=== PATIENT | male | born 1980 | race Caucasian/White ===

== ENCOUNTER 2017-09-19 03:33 | Emergency (ER) | payer MEDICAID ==
[~2017-09-19] VITALS: Ht 175.3 cm; Wt 88.5 kg
[2017-09-19] MEDS ORDERED: NKM (03:45)
[2017-09-19 03:50] VITALS: BP 123/73
[2017-09-19] MEDS ORDERED: MUPIROCIN22 GM TOPIC (04:10)
[2017-09-19] MEDS ORDERED: DOXYCYCLINE MO100 MG ORAL (04:10)
--- NOTE | 2017-09-19 04:10 | Emergency Room Report ---
History of Present Illness General Chief Complaint: Male Urogenital Problems Source: Patient Present Illness HPI Is a 37-year-old male with no past medical history. He presents with penile pain. Onset for about a week. He said about a month ago his girlfriend and shave in the pubic area and has bumps around that area. There were having intercourse he said there was a small cut to the head of the penis. It never healed completely. About a week ago started draining now has swelling to the shaft. No fever chills but no nausea no vomiting. [place] and palpation made it worse. Rest made it better. No penile discharge. No dysuria. Allergies: Coded Allergies: No Known Allergies (Unverified , 09/19/17) Patient History Past Medical History: see triage record, old chart reviewed Past Surgical History: none Pertinent Family History: none Social History: Denies: smoking Immunizations: other Reviewed Nursing Documentation: PMH: Agreed; PSxH: Agreed Nursing Documentation-PM Past Medical History: No Stated History Review of Systems Eye: Denies: eye pain, blurred vision ENT: Denies: ear pain, nose congestion, throat swelling Respiratory: Denies: cough, shortness of breath Cardiovascular: Denies: chest pain, palpitations Gastrointestinal: Denies: abdominal pain, diarrhea, nausea, vomiting Musculoskeletal: Denies: back pain, joint pain Skin: Denies: rash Neurological: Denies: headache, numbness Endocrine: Denies: increased thirst, increased urine Hematologic/Lymphatic: Denies: easy bruising All Other Systems: negative except mentioned in HPI Physical Exam Vital Signs Date Time Temp Pulse Resp B/P (MAP) Pulse Ox O2 Delivery O2 Flow Rate FiO2 09/19/17 03:42 97.7 81 16 123/73 96 Room Air 97.7 vitals normal Sp02 EP Interpretation: reviewed, normal General Appearance: well appearing, no apparent distress, alert Head: normocephalic, atraumatic Eyes: bilateral eye PERRL, bilateral eye EOMI ENT: hearing grossly normal, normal pharynx Neck: full range of motion, supple, no meningismus Respiratory: chest non-tender, lungs clear, normal breath sounds Cardiovascular #1: regular rate, rhythm, no murmur Gastrointestinal: normal bowel sounds, non tender, no mass, no organomegaly, no bruit, non-distended Genitourinary: other - Patient is circumcised. No testicular tenderness. On the lateral aspect of the right side at the face with plan there is a 1 cm laceration with purulent drainage. He has some erythema to the skin of the shaft. No abscess palpated on the shaft. Musculoskeletal: back normal, gait/station normal, normal range of motion Psychiatric: mood/affect normal Skin: warm/dry Medical Decision Making Diagnostic Impression: Primary Impression: Abscess of penis ER Course Patient with a superficial abscess to the base of penile glan. No evidence of Lauren disease. No evidence of necrotizing fasciitis. Last Vital Signs Date Time Temp Pulse Resp B/P (MAP) Pulse Ox O2 Delivery O2 Flow Rate FiO2 09/19/17 03:50 97.7 81 16 123/73 96 Room Air 97.7 Status: improved Disposition: HOME, SELF-CARE Condition: Stable Scripts Doxycycline Monohydrate* (DOXYCYCLINE MONOHYDRATE*) 100 Mg Capsule 100 MG ORAL Q12H, #14 CAP 0 Refills Prov: MIAH ZAMAN M.D. 09/19/17 Mupirocin* (MUPIROCIN*) 22 Gm Oint...g. 1 APPLIC TOPIC THREE TIMES A DAY, #22 GM Prov: MIAH ZAMAN M.D. 09/19/17 Additional Instructions: Clean area with hydroperoxide first, then apply antibiotic ointment. Take the antibiotics. Follow-up in 2 days for recheck. Return if worse. MIAH ZAMAN M.D. Sep 19, 2017 04:10
[2017-09-19 04:15] VITALS: BP 123/73
[2017-09-19] MEDS ORDERED: Bactrim-DS 1 tab ORAL ONE (04:15)
== END 2017-09-19 04:15 | disposition home or self-care (01) ==
LOC: EMR 04:06
DX: N48.21 Abscess of corpus cavernosum and penis (principal)
CPT/HCPCS: 99284